=== PATIENT | female | born 1965 | race Caucasian/White ===

== ENCOUNTER 2016-06-05 17:26 | Emergency (ER) | payer OTHER ==
--- NOTE | 2016-06-05 17:26 | ED.REPORT ---
HPI-Trauma Minor / Fall Date of Service Jun 05, 2016 ED Provider: Dr. Lundy Pt is a 51 y/o female presenting to the ED via EMS due to 8 ft fall from ladder which occurred about 1 hour ago. The patient was on a ladder cleaning the gutters and fell from about 8 feet up. Upon EMS arrival, she was awake and alert and able to stand, bear weight on both legs, and transfer herself out of a wheelchair to the [facility]. 100 mcg Fentanyl was given by medics. She was hypertensive at 180 systolic and other vital signs were normal. She c/o neck pain, headache, right hip pain, right arm pain, mild right hand numbness. She denies SOB, abdominal pain, change in LOC. The patient had a C6-C7 fusion in March of 2016. She denies any alcohol or drug use today. Nursing Notes Stated Complaint: FALL Nursing Notes Reviewed: Yes Allergies: Coded Allergies: Contrast Media (Verified Allergy, Unknown, 12/04/14) morphine (Verified Allergy, Unknown, 12/04/14) oxycodone (Verified Allergy, Unknown, 12/04/14) codeine (Verified Adverse Reaction, Unknown, 12/04/14) No Active Prescriptions or Reported Meds General Time Seen by MD: 17:27 Chief Complaint Fall Hx Obtained From: Patient, EMS Arrived By: Ambulance Onset Occurred: Just prior to arrival Symptom Duration: Since onset Caused by: Fall from height... (6-10 feet) Location: Arm right Head Hip right Quality: Painful Severity: Current: Moderate Severity: Maximum: Severe Similar Sx Previous: No Past Medical History Past Medical History Hypertension Pre-diabetes Past Surgical History Left wrist repair C6-C7 fusion Smoking History Current Every Day Smoker Social History Alcohol Use: Denies alcohol use Drug Use: Denies drug use Ambulatory Status Independent Review of Systems Constitutional: Denies: Chills, Fever Musculoskeletal: Reports: Extremity swelling, Joint pain, Neck pain Neurologic: Reports: Headache, Numbness, Denies: Change LOC, Focal weakness Complete sys rev & neg: except as marked. Cardiovascular: Denies: Chest pain GI: Denies: Nausea, Vomiting Physical Exam Initial Vital Signs see paper chart Initial VS: Reviewed Skin: Warm, Dry, No cyanosis Psychiatric: Mood/affect normal, Behavior normal, Normal thought content General/Constitutional: Awake, Alert, Cooperative, Not toxic appearing Distress / Hydration: Positive: Distress mild Neck: Atraumatic, Supple, No swelling, No crepitus, No tracheal deviation Lower cervical tenderness Head / Eyes: Atraumatic, Normocephalic, PERRL, EOMI ENT: Atraumatic, Airway patent, Mucous membranes moist, Pharynx NL Respiratory / Chest: Atraumatic, Breath sounds NL, Breath sounds = bilat, No respiratory distress, No rales, No rhonchi, No wheezing, No retractions, No stridor, No chest tenderness, No chest wall deformity, No crepitus Cardiovascular: Heart rate NL, Regular rhythm, Heart sounds NL, No gallop, No murmurs, No rubs, Cap refill not delayed, Peripheral circulation NL Back: Atraumatic, Inspection NL, Non-tender, No midline vertebral tend Upper Extremity / MS: Neurologic intact, Vascular intact, No compartment syndrome, No clubbing/cyanosis Right distal radius deformity Lower Extremity / Pelvis / MS: No deformity, Neurologic intact, Vascular intact , No compartment syndrome, No circumferential injury, Pelvis stable, Pelvis non- tender Neurologic: Oriented X3, Speech NL, No motor deficits, No sensory deficits, CN II - XII intact, Cerebellar NL, Memory NL Interpretation & Diagnostics Lab Results Interpretation Result Diagram: 06/05/16 1742 06/05/16 1742 Test 06/05/16 17:42 06/05/16 18:10 White Blood Count 12.9th/mm3 (3.8-10.1) Red Blood Count 4.70mil/mm3 (3.90-5.20) Mean Corpuscular Volume 92.8fL (81-100) Mean Corpuscular Hemoglobin 31.1pg (27.0-35.0) Mean Corpuscular Hemoglobin Concent 33.5% (32.0-37.0) Red Cell Distribution Width 13.1% (12.3-15.4) Platelet Count 280bil/L (150-400) Neutrophils (%) (Auto) 68.6% (40-74) Lymphocytes (%) (Auto) 22.5% (14-46) Monocytes (%) (Auto) 7.0% (4-12) Eosinophils (%) (Auto) 1.1% (0-5) Basophils (%) (Auto) 0.3% (0-3) Prothrombin Time 10.0sec (8.1-12.5) Prothromb Time International Ratio 0.94ratio Activated Partial Thromboplast Time 23.8sec (22.8-33.0) Sodium Level 139mEq/L (134-144) Potassium Level 3.9mEq/L (3.5-5.2) Chloride Level 99mEq/L (97-108) Carbon Dioxide Level 22mmol/L (18-29) Blood Urea Nitrogen 19mg/dL (6-24) Creatinine 0.72mg/dL (0.57-1.00) Estimat Glomerular Filtration Rate 121mL/min (>59) Glucose Level 114mg/dL (60-99) Calcium Level 9.9mg/dL (8.5-10.1) Total Bilirubin 0.3mg/dL (0.0-1.2) Aspartate Amino Transf (AST/SGOT) 48U/L (0-50) Alanine Aminotransferase (ALT/SGPT) 52U/L (0-32) Alkaline Phosphatase 93U/L (25-150) Total Protein 8.0g/dL (6.4-8.4) Albumin 4.7g/dL (3.4-5.0) Alcohols < 10mg/dL (0-10) X-Ray Chest Interpretation Chest Xray Interpretation: IMPRESSION: No acute cardiopulmonary findings. Dictated by: Melina New M.D. on 06/05/2016 at 17:58 Approved by: Melina New M.D. on 06/05/2016 at 17:58 View: Portable, 1 view Interpretation / Wet Read by: Interpret - Radiologist X-Ray Interpretation Xray Interpretation: IMPRESSION: No acute radiographic findings. If there is high clinical suspicion for occult fracture, CT of the pelvis is recommended. Dictated by: Melina New M.D. on 06/05/2016 at 17:59 Approved by: Melina New M.D. on 06/05/2016 at 18:00 Study Performed: 2 view X-Ray Ordered: Pelvis Interpretation / Wet Read by: Interpret - Radiologist CT Head Interpretation IMPRESSION: 1. No acute intracranial findings. Dictated by: Melina New M.D. on 06/05/2016 at 18:17 Approved by: Melina New M.D. on 06/05/2016 at 18:19 Study: Head CT no contrast Interpretation / Wet Read by: Interpret - Radiologist CT C-Spine Interpretation IMPRESSION: 1. No acute cervical spine injury. 2. Postsurgical and degenerative change. Dictated by: Melina New M.D. on 06/05/2016 at 18:14 Approved by: Melina New M.D. on 06/05/2016 at 18:17 Study type: CT no contrast Interpretation / Wet Read by: Interpret - Radiologist Re-Eval/Medical Decision Med Decision/Clinical Course Fall from 8 feet, mainly complaining of neck and right wrist and right hip pain. Chest abdomen and other extremities are unremarkable. Currently awaiting further imaging and monitoring. Care transferred to Dr. Ramirez Source of Hx: Old records Counseled Regarding: Diagnosis, Lab results Discharge & Departure Impression: Primary Impression: Fall from ladder Encounter type: initial encounter Qualified Code: W11.XXXA - Fall on and from ladder, initial encounter Discharge Condition All VS Reviewed: Yes Condition: Stable Referrals: [facility] (PCP) Care Transferred to: Dr. Ramirez Care Transferred at: 18:16 [place] Attestation Portions of this note were transcribed by Filemon Willis. I, Dr. Lundy, personally performed the history, physical exam and medical decision-making; I reviewed and confirmed the accuracy of the information in the transcribed note. Signed by Yamel Ly, 06/05/16 - [id number] copies to: [facility] Abundio Lundy DO Jun 05, 2016 17:26 FILEMON WILLIS Jun 05, 2016 17:34
[2016-06-05] MEDS ORDERED: 0.9% Sodium Chloride 1,000 ML IV ONE (17:34)
[2016-06-05] MEDS ORDERED: Ondansetron 2 mg/mL 2 mL Inj IVPUSH ONE (17:35)
[2016-06-05 17:45] LABS: BASOPHILS % (AUTO) 0.3 % (0-3); EOSINOPHILS % (AUTO) 1.1 % (0-5); Mean Corpuscular Hemoglobin 31.1 pg (27.0-35.0); Mean Corpuscular Volume 92.8 fL (81-100); NEUTROPHILS % (AUTO) 68.6 % (40-74); Platelet Count 280 bil/L (150-400)
--- NOTE | 2016-06-05 18:00 | DRSVH ---
PROCEDURE: X-RAY CHEST ONE VIEW, PORTABLE ([id number]) INDICATIONS: trauma TECHNIQUE: One view of the chest was acquired. COMPARISON: None. FINDINGS: Surgical changes and devices: Cervical fixation hardware is partially visualized and is grossly intac t. Lungs and pleura: No pleural effusions or pneumothorax. Lungs are clear. Mediastinum: Mediastinal contours appear normal. Heart size is normal. Bones and chest wall: No suspicious bony lesions. Overlying soft tissues appear unremarkable. IMPRESSION: No acute cardiopulmonary findings. Dictated by: Melina New M.D. on 06/05/2016 at 17:58 Approved by: Melina New M.D. on 06/05/2016 at 17:58
--- NOTE | 2016-06-05 18:02 | DRSVH ---
PROCEDURE: X-RAY PELVIS, ONE OR TWO VIEWS ([id number]) INDICATIONS: trauma TECHNIQUE: Single view(s) of the pelvis and crosstable view of the right hip acquired. COMPARISON: None. FINDINGS: Bones: No fractures or dislocations. No suspicious bony lesions. Soft tissues: Visualized bowel gas pattern is normal. No suspicious soft tissue calcifications. Cooper rgical clips are present throughout the pelvis. Posterior spinal fixation hardware is partially visua lized and is grossly intact. IMPRESSION: No acute radiographic findings. If there is high clinical suspicion for occult fracture, CT of the pelvis is recommended. Dictated by: Melina New M.D. on 06/05/2016 at 17:59 Approved by: Melina New M.D. on 06/05/2016 at 18:00
[2016-06-05 18:07] LABS: INR 0.94 ratio
--- NOTE | 2016-06-05 18:18 | DRSVH ---
PROCEDURE: CT CERVICAL SPINE WITHOUT CONTRAST ([id number]) INDICATIONS: fall, head and lower cervical pain TECHNIQUE: Noncontrast 3 mm thick sections acquired from the skull base to the T4 level. Sagittal and coronal r eformats were then constructed. For radiation dose reduction, the following was used: automated exp osure control, adjustment of mA and/or kV according to patient size. COMPARISON: None. FINDINGS: Image quality: Excellent. Bones: No acute fracture or dislocation. Patient is status post anterior fusion and discectomy at C6- C7. A small C5-C6 limbus vertebra is noted. Soft tissues: Prevertebral soft tissues are normal in thickness. No paravertebral hematomas. No ap ical pneumothoraces. IMPRESSION: 1. No acute cervical spine injury. 2. Postsurgical and degenerative change. Dictated by: Melina New M.D. on 06/05/2016 at 18:14 Approved by: Melina New M.D. on 06/05/2016 at 18:17
--- NOTE | 2016-06-05 18:20 | DRSVH ---
PROCEDURE: CT BRAIN WITHOUT CONTRAST ([id number]) INDICATIONS: fall, head and lower cervical pain TECHNIQUE: Noncontrast 4.5 mm thick angled axial sections acquired from the foramen magnum to the vertex, with c oronal reformats. COMPARISON: None. FINDINGS: Image quality: Excellent. CSF spaces: Basal cisterns are patent. No extra-axial fluid collections. Ventricles are normal in size and shape. Brain: No midline shift. No intracranial masses or hemorrhage. Huizar-white matter interface is norm al. Skull and face: Calvarium and visualized facial bones are intact, without suspicious lesions. Sinuses: Visualized sinuses and mastoids are clear. IMPRESSION: 1. No acute intracranial findings. Dictated by: Melina New M.D. on 06/05/2016 at 18:17 Approved by: Melina New M.D. on 06/05/2016 at 18:19
[2016-06-05] MEDS: fentaNYL-PF 50 mCg/mL 2 mL Inj IVPUSH PRN ×2 (18:57→19:34)
--- NOTE | 2016-06-05 19:22 | DRSVH ---
PROCEDURE: X-RAY RIGHT WRIST COMPLETE, MINIMUM THREE VIEWS ([id number]) INDICATIONS: fall, trauma TECHNIQUE: 4 views of the wrist were acquired. COMPARISON: [facility], CR, XR FOREARM 2VW RT, 06/05/2016, 18:24. FINDINGS: Bones: No fractures or dislocations at the wrist. No suspicious bony lesions. Degenerative changes are present throughout the carpal bones including joint space narrowing and subchondral cystic change s. There is a displaced fracture of the coronoid process which is incompletely characterized on this sands ited view of the elbow. Scaphoid view: The scaphoid is intact. Soft tissues: No suspicious soft tissue calcifications. IMPRESSION: 1. Degenerative change. No acute fractures of the wrist visualized. If pain persists, repeat study in 5-7 days is recommended to exclude occult fracture. 2. Displaced coronoid process fracture. Dedicated view of the elbow recommended to further characteri ze this finding. The acuity of this finding is unknown. Please correlate clinically. Dictated by: Melina New M.D. on 06/05/2016 at 19:18 Approved by: Melina New M.D. on 06/05/2016 at 19:21
--- NOTE | 2016-06-05 19:24 | DRSVH ---
PROCEDURE: X-RAY RIGHT FOREARM, TWO VIEWS ([id number]) INDICATIONS: FALL TECHNIQUE: 2 views of the forearm were acquired. COMPARISON: None. FINDINGS: Bones: Postsurgical changes are present at the elbow joint including resection of the radial head and hypertrophic changes of the proximal ulna. The displaced coronoid process fracture visualized on the 3 views of the wrist is not visualized on this limited view of the elbow. No other fracture or dislo cation. Soft tissues: No suspicious soft tissue calcifications or masses. IMPRESSION: Consider dedicated views of the elbow to further characterize the coronoid process fractu re visualized on the wrist films. No other fractures visualized. Postsurgical and degenerative change s as above. Dictated by: Melina New M.D. on 06/05/2016 at 19:21 Approved by: Melina New M.D. on 06/05/2016 at 19:22
[2016-06-05] MEDS ORDERED: _oxyCODONE/APAP 5-325 mg Tablet PO PRN (20:30)
--- NOTE | 2016-06-05 20:38 | DRSVH ---
PROCEDURE: X-RAY RIGHT ELBOW, TWO VIEWS ([id number]) INDICATIONS: fall TECHNIQUE: 2 views of the elbow were acquired. COMPARISON: None. FINDINGS: Bones: There is a minimally displaced fracture of the coronoid process. There are extensive degenerat conchis and postsurgical changes of the proximal ulna and surgical resection of the radial head. Soft tissues: No elbow joint effusion. No suspicious soft tissue calcifications. IMPRESSION: 1. Minimally displaced coronoid process fracture. Given the extensive degenerative change, postsurgic al change, and lack of elbow joint effusion, this is likely a chronic non-unified fracture and not an acute fracture. Dictated by: Melina New M.D. on 06/05/2016 at 20:35 Approved by: Melina New M.D. on 06/05/2016 at 20:37
[2016-06-05 21:48] VITALS: BP 128/74; PULSE 84; RESP 14; O2SAT 99
== END 2016-06-05 21:00 ==
LOC: SED 17:26
DX: S09.90XA Unspecified injury of head, initial encounter (principal); S60.211A Contusion of right wrist, initial encounter; S70.00XA Contusion of unspecified hip, initial encounter; W11.XXXA Fall on and from ladder, initial encounter; Y93.H9 Activity, other involving exterior property and land maintenance, building and construction; Y92.89 Other specified places as the place of occurrence of the external cause; Y99.8 Other external cause status; I10 Essential (primary) hypertension; F17.200 Nicotine dependence, unspecified, uncomplicated; Z88.5 Allergy status to narcotic agent; Z91.041 Radiographic dye allergy status
CPT/HCPCS: 36415; 70450; 71010; 72125; 72170; 73070; 73090; 73110; 80053; 85014; 85018; 85025; 85610; 85730; 86850; 94799; 96361; 96374; 96375; 96376; 99285; G0480; J2405; J3010; J7030